=== PATIENT | female | born 1950 | race Caucasian/White ===

== ENCOUNTER 2020-05-21 13:54 | Outpatient (REF) | payer BC, SELFPAY ==
[2020-05-21 16:35] LABS: Hematocrit 37.2 % (37-47); Mean Corpuscular HGB Conc 32.3 g/dl (31.0-35.0); Mean Corpuscular Hemoglobin 27.6 pg (27.0-33.0); Mean Corpuscular Volume 85.7 fL (80-98); Mean Platelet Volume 12.4 fL (9.4-12.3); Platelet Count 150 X10*3/uL (160-400); Red Blood Count 4.34 X10*6/uL (4.20-5.50); Red Cell Distribution Width 13.2 % (11.0-16.0); White Blood Count 5.1 X10*3/uL (4.8-10.8)
[2020-05-21 16:38] LABS: Glucose Urine UA NEG (NEG); Leukocyte Esterase Urine NEG (NEG); Nitrite Urine NEG (NEG); Specific Gravity - Urine 1.015 (1.005-1.025); Urine Blood NEG (NEG); Urine Ketones NEG (NEG); Urine Protein NEG (NEG-TRACE)
[2020-05-21 16:41] LABS: Appearance Urine CLEAR; Color Urine STRAW
[2020-05-21 16:58] LABS: C Reactive Protein < 0.02 mg/dL (< or = 0.50)
[2020-05-21 17:21] LABS: Erythrocyte Sedimentation Rate 8 MM/HR (0-20)
[2020-05-22 15:32] LABS: Calcium, Ionized 5.6 mg/dL (4.8-5.6)
[2020-05-23 10:01] LABS: Calcium (PTHI) 10.8 mg/dL (8.6-10.4); PTHI 72 pg/mL (14-64)
== END 2020-05-21 13:55 | disposition home or self-care (01) ==
LOC: HO.HMGCLDS 13:54
PROVIDERS: PCP Internal Medicine; Visit Provider Internal Medicine
DX: Z00.00 Encounter for general adult medical examination without abnormal findings (principal); R30.0 Dysuria
CPT/HCPCS: 36415; 81003; 82306; 82330; 83970; 85027; 85652; 86140

== ENCOUNTER 2023-08-03 11:45 | Outpatient (AMB) | payer MEDICARE, BC, SELFPAY ==
[2023-08-03 11:51] VITALS: BP 110/64; PULSE 60; O2SAT 97; BMI 21.1
--- NOTE | 2023-08-03 11:51 | AM.OFFVISMDC ---
Intake Vital Signs 08/03/23 11:51 Height 5 ft 5 in Weight 127 lb BMI 21.1 BP 110/64 Blood Pressure Location Lt brachial Position Sitting Pulse 60 Pulse Source Pulse Oximeter Pulse Oximetry (%) 97 Oxygen Delivery Method Room Air Intake Visit Reasons: SWV [id number] Allergies iodine Allergy (Unknown, Verified 08/03/23 12:14) unknown Erythromycin Allergy (Unknown, Uncoded 08/03/23 12:14) unknown Medication List - Last Reconciled 08/03/23 by Smiley Harmon MD biotin PO cholecalciferol (vitamin D3) 25 mcg PO DAILY letrozole 2.5 mg PO DAILY melatonin 3 mg PO BEDTIME PRN HPI SWV [id number] HPI Details Pt presents for annual.Initiated the conversation about Advanced Directives. Advanced Directives help? patients prepare for current and future decisions about their medical treatment? and place of care. Discussed with patient that it is a process where a patients? current condition and prognosis are reviewed, their wishes for information? regarding their illness are elicited, and likely medical dilemmas are presented? and options discussed. The form can be amended as needed, reviewed yearly and? make changes as needed IPPE/AWV ? year old presents? for her ? Annual? Wellness Visit, initial visit.? Medical / Social History Reviewed? Past Medical History ?Yes? . ? [place]? of Care / Care Team list updated ?Yes . ? Surgical/Hospitalization? History ?Yes . ? Current Medications? (including OTC and supplements) ?Yes . ? Family History ?Yes? . ? Tobacco? Control form ?Yes . ? AUDIT-C (Alcohol use) form? ?Yes . ? Illicit drug use in Social? History ?Yes . ? Current diagnosis of? depression? ?No ? Appropriate PHQ2/PHQ9? completed ?Yes . ? Data entered by ?Medical? Sales Performance Analyst and reviewed by provider ? Fall Risk ? Fall? History? Have you had any falls with? injury in the past year? ?No . ? Have you had two or more? falls in the past year? ?No . ? Fall Risk Assessment: ?No? falls in the past year . ? HRA filled out by? the patient, reviewed by Provider and scanned. ? IPPE/AWV ? Balance? [place]? ?Yes . ? Tandem? walk ?Yes . ? Walk and? Turn ?Yes . ? Rise from? sit to stand ?Yes . ?Vision? Corrective? lens ?Yes ? Vision? screen ? Up-to-date, has an appointment [] for vision? screening and glaucoma screening ?Hearing? Whisper? test ?pass .? Initiated the conversation about Advanced Directives. Advanced Directives help? patients prepare for current and future decisions about their medical treatment? and place of care. Discussed with patient that it is a process where a patients? current condition and prognosis are reviewed, their wishes for information? regarding their illness are elicited, and likely medical dilemmas are presented? and options discussed. The form can be amended as needed, reviewed yearly and? make changes as needed Written? Plan?Completed. See Patient? Documents. [facility] Medical History (Updated 08/03/23 @ 15:17 by Smiley Harmon MD) Bilateral breast cancer Tick bite Fatigue Osteopenia GERD (gastroesophageal reflux disease) Hyperparathyroidism Insomnia Dysuria Surgical History S/P bilateral mastectomy History of esophagogastroduodenoscopy (EGD) Family History Father CVD (cardiovascular disease) HTN (hypertension) Diabetes Mother CVD (cardiovascular disease) Diabetes HTN (hypertension) Social History Housing: House Alcohol intake: current Alcohol intake frequency: holidays/special occasions only Patient Tobacco Use Status: Never used Tobacco e-Cigarette/Vaping Use: Never Used Current occupational status: retired Cognitive needs: No Hearing needs: No Vision needs: Yes Questionnaire Medicare Wellness Checkup [age] What gender do you identify with?: female During the past 4 weeks, how much have you been bothered by emotional problems such as feeling anxious, depressed, irritable, sad or downhearted, and blue?: slightly During the past 4 weeks, has your physical & emotional health limited your social activities with family, friends, neighbors, or groups?: slightly During the past 4 weeks, how much bodily pain have you generally had?: no pain During the past 4 weeks, was someone available to help you if you needed & wanted help?: yes, some During the past 4 weeks, what was the hardest physical activity you could do for at least 2 minutes?: heavy Can you get to places out of walking distance without help? (For eg., can you travel alone on buses, taxis or drive your car?): Yes Can you go shopping for groceries or clothes without someone's help?: Yes Can you prepare your own meals?: Yes Can you do your housework without help?: Yes Because of any health problems, do you need the help of another person with your personal care needs such as eating, bathing, dressing or getting around the house?: No Can you handle your own money without help?: Yes During the past 4 weeks, how would you rate your health in general?: good During the past 4 weeks how have things been going for you?: pretty well Are you having difficulties driving your car?: no Do you always fasten your seat belt when you are in a car?: yes, usually During past 4 weeks, have you been bothered by the following: never: Falling or dizzy when standing up, Trouble eating well?, Teeth or denture problems? and Problems using the telephone?, sometimes: Sexual problems? and often: Tiredness or fatigue? Have you fallen 2 or more times in the past year?: No Are you afraid of falling?: No Are you a smoker?: no During the past 4 weeks, how many drinks of wine, beer, or other alcoholic beverages did you have?: no alcohol at all Do you exercise for about 20 minutes 3 or more times a week?: yes, most of the time Have you been given information to help with the following?: no: Hazards in your house that might hurt you? and no: Keeping track of your medications? How often do you have trouble taking medicines the way you have been told to take them?: I always take medicine as prescribed How confident are you that you can control & manage most of your health problems?: very confident What is your race?: White Mini Mental State Exam (MMSE) Orientation What is the (year) (season) (date) (day) (month)?: year, season, date, day and month Where are we (state) (county) (town or city) (hospital) (floor)?: state, county, town or city, hospital/clinic and floor Registration Name of 3 unrelated objects clearly and slowly, then ask patient to repeat all 3 of them. (1st repeat determines score. Make sure they can repeat all three): object 1, object 2 and object 3 Attention & Calculation (CHOOSE ONE) Spell WORLD backwards (DLROW): 5 letters Recall Ask patient to repeat the 3 items from question #3.: object 1, object 2 and object 3 Language Show patient a wristwatch & ask what it is. Repeat for pencil.: watch and pencil Ask the patient to repeat the phrase 'No ifs, ands, or buts' after you.: correct Ask the patient to 'take a piece of paper with their right hand' 'fold paper in half' 'place paper on floor': take paper in right hand, fold paper in half and place paper on floor Print the sentence 'CLOSE YOUR EYES' on a piece. If patient actually closes eyes then score.: followed written direction Give patient a blank piece of paper & ask to write a sentence. Score if it contains a noun & verb.: sentence contains subject and verb Score Score: 29 Activity of Daily Living Bathing - sponge bath, tub bath or shower: receives no assistance (gets in/out by self, if usual bathing means Dressing - getting clothes from closets & drawers, including inner/outer garments & fasteners.: gets clothes & gets completely dressed without help Toileting - going to the 'toilet room' for urine/bowel elimination & cleaning self/arranging clothes: goes to toilet room, cleans self, arranges clothes without help Transfer: moves in & out of bed and chair without help (may use support object) Continence: controls urination/bowel movements completely by self Feeding: feeds self without help Total Score: 0 Information obtained from: patient Using telephone: independent Traveling: independent Shopping: independent Preparing meals: independent Housework: independent Taking medicine: independent Managing money: independent PHQ-9 Over the last 2 weeks, how often have you been bothered by any of the following problems? 1. Little interest or pleasure in doing things: not at all 2. Feeling down, depressed, or hopeless: not at all 3. Trouble falling or staying asleep, or sleeping too much: more than half the days 4. Feeling tired or having little energy: several days 5. Poor appetite or overeating: not at all 6. Feeling bad about yourself - or that you are a failure or have let yourself or your family down: several days 7. Trouble concentrating on things, such as reading the newspaper or watching television: not at all 8. Moving or speaking so slowly that other people could have noticed. Or the opposite - being so fidgety or restless that you have been moving around a lot more than usual: not at all 9. Thoughts that you would be better off or of hurting yourself in some way: not at all Total score: 4 Depression Screening Interpretation: Negative Depression Screening Done: Yes Source: Developed by Moan [employer]W. Cem, Clem Durham and colleagues, with an educational yonis from [email or web address]. Review of Systems Const All systems reviewed & are unremarkable except as noted in HPI and below Eyes Reports no additional complaints ENT Reports no additional complaints Card Reports no additional complaints Resp Reports no additional complaints GI Reports no additional complaints Reports no additional complaints Musc Reports no additional complaints Physical Exam Vital Signs: Last Vital Signs Pulse 60 08/03/23 11:51 BP 110/64 08/03/23 11:51 Pulse Ox 97 08/03/23 11:51 Oxygen Delivery Method Room Air 08/03/23 11:51 BMI result Body Mass Index 21.1 Const General: comfortable HEENT Head: Yes normal to inspection Ears: hearing grossly normal bilaterally Eyes General: appearance normal, both eyes and all related structures Neck Neck: Yes no lymphadenopathy and Yes supple Resp Effort & Inspection: normal respiratory effort Auscultation: clear to auscultation bilaterally Cardio Rhythm: regular rhythm Heart sounds: S1 normal heart sound present and S2 normal heart sound present GI Inspection: Yes normal to inspection Palpation (GI): Soft to palpation Percussion: Yes normal to percussion Auscultation: normal bowel sounds Extrem General: Yes no clubbing, cyanosis or edema Assessment & Plan Assessment & Plan (1) Annual physical exam: Code(s): Z00.00 - Encounter for general adult medical examination without abnormal findings Plan: Well-balanced diet regular physical activity discussed with the patient. (2) Hyperglycemia: Code(s): R73.9 - Hyperglycemia, unspecified Plan: Continue ADA diet (3) Vitamin D deficiency: Code(s): E55.9 - Vitamin D deficiency, unspecified Plan: Continue vitamin-D supplement (4) Mercury overdose: Comment: patient eats fish every day Code(s): T56.1X1A - Toxic effect of mercury and its compounds, accidental (unintentional), initial encounter Plan: Check mercury level (5) Bilateral breast cancer: Comment: bilateral breast cancer, left in 1996 s/p chemo/RTx mastectomy and right in 2008 s/pmastectomy f/u [facility] oncology Code(s): C50.911 - Malignant neoplasm of unspecified site of right female breast; C50.912 - Malignant neoplasm of unspecified site of left female breast Plan: Continue letrozole follow-up with oncology every 6 months Orders: Orders Comprehensive [place]. Panel Fast Today E55.9 - Vitamin D deficiency, unspecified, R73.9 - Hyperglycemia, unspecified, Z00.00 - Encounter for general adult medical examination without abnormal findings Lipid Panel Today E55.9 - Vitamin D deficiency, unspecified, R73.9 - Hyperglycemia, unspecified, Z00.00 - Encounter for general adult medical examination without abnormal findings Vitamin D 25-OH Total Today E55.9 - Vitamin D deficiency, unspecified, R73.9 - Hyperglycemia, unspecified, Z00.00 - Encounter for general adult medical examination without abnormal findings Hemoglobin A1c Today E55.9 - Vitamin D deficiency, unspecified, R73.9 - Hyperglycemia, unspecified, Z00.00 - Encounter for general adult medical examination without abnormal findings Parathyroid Hormone Intact Today E21.3 - Hyperparathyroidism, unspecified Complete Blood Count Auto Diff Today E55.9 - Vitamin D deficiency, unspecified, R73.9 - Hyperglycemia, unspecified, Z00.00 - Encounter for general adult medical examination without abnormal findings Hepatitis C Antibody Today E55.9 - Vitamin D deficiency, unspecified, R73.9 - Hyperglycemia, unspecified, Z00.00 - Encounter for general adult medical examination without abnormal findings Mercury, Blood Today T56.1X1A - Toxic effect of mercury and its compounds, accidental (unintentional), initial encounter TSH reflex Free T4 Today R73.9 - Hyperglycemia, unspecified, Z00.00 - Encounter for general adult medical examination without abnormal findings Quality Reporting (2020) Depression/Bipolar (159/160/161/177) PHQ-9: Total score: 4 Coding Level of Care Code Medicare Subsequent (G0439) Diagnoses Annual physical exam Z00.00 Hyperglycemia R73.9 Vitamin D deficiency E55.9 Mercury overdose T56.1X1A Bilateral breast cancer C50.911; C50.912 CPT Codes Advance Care Planning - Advance Care Planning discussion: On file, no changes ([id number]) Advance Care Planning - Time spent: 1-15 minutes, on File ([id number]) Advance Care Planning Advance Care Planning discussion: On file, no changes Forms completed: Health Care Proxy Time spent: 1-15 minutes, on File
== END 2023-08-03 15:18 | disposition home or self-care (01) ==
LOC: HO.HMGC 11:45
PROVIDERS: PCP Internal Medicine; Visit Provider Internal Medicine
DX: Z00.00 Encounter for general adult medical examination without abnormal findings (principal); C50.911 Malignant neoplasm of unspecified site of right female breast; C50.912 Malignant neoplasm of unspecified site of left female breast; R73.9 Hyperglycemia, unspecified; E55.9 Vitamin D deficiency, unspecified; T56.1X1A Toxic effect of mercury and its compounds, accidental (unintentional), initial encounter
CPT/HCPCS: 1123F; G0439

== ENCOUNTER 2023-12-15 09:06 | Outpatient (AMB) | payer MEDICARE, BC, SELFPAY ==
[2023-12-15 09:07] VITALS: BP 108/64; PULSE 55; O2SAT 97; BMI 21.3
--- NOTE | 2023-12-15 09:07 | MHC.PC.OV ---
Vital Signs 12/15/23 09:07 Height 5 ft 5 in Weight 128 lb BMI 21.3 BP 108/64 Blood Pressure Location Rt brachial Position Sitting Pulse 55 Pulse Source Pulse Oximeter Pulse Oximetry (%) 97 Oxygen Delivery Method Room Air Intake Visit Reasons: RT cataract surgery - see comments Intake Note: Pt is here today for a pre op visit. Pt is having cataract surgery on 12/24/[address] Mckenzie. Allergies iodine Allergy (Unknown, Verified 12/15/23 09:09) unknown Erythromycin Allergy (Unknown, Uncoded 12/15/23 09:09) unknown Medication List - Last Reconciled 12/15/23 by Smiley Harmon MD biotin PO cholecalciferol (vitamin D3) 25 mcg PO DAILY letrozole 2.5 mg PO DAILY melatonin 3 mg PO BEDTIME PRN Tobacco use date assessed: 12/15/23 Fall risk assessment: No Falls in past year Last assessed Fall Risk: 12/15/23 Dental Screening Dental Screen Date: 12/15/23 Did you have a dental visit in the last 12 months?: Yes Did you have a dental problem in the last 6 months where you did not have access to dental care?: No Was dental information given to patient?: Patient has dentist HPI RT cataract surgery - see comments HPI Details Pt presents for preop for cataract surgery. PFSH Medical History (Updated 12/15/23 @ 09:38 by Smiley Harmon MD) Bilateral breast cancer Tick bite Fatigue Osteopenia GERD (gastroesophageal reflux disease) Hyperparathyroidism Insomnia Dysuria Surgical History (Updated 12/15/23 @ 09:41 by Smiley Harmon MD) S/P bilateral mastectomy History of esophagogastroduodenoscopy (EGD) Family History Father CVD (cardiovascular disease) HTN (hypertension) Diabetes Mother CVD (cardiovascular disease) Diabetes HTN (hypertension) Social History Housing: House Alcohol intake: current Alcohol intake frequency: holidays/special occasions only Patient Tobacco Use Status: Never used Tobacco e-Cigarette/Vaping Use: Never Used service: No Current occupational status: retired Cognitive needs: No Hearing needs: No Vision needs: Yes Questionnaire PHQ-9 Over the last 2 weeks, how often have you been bothered by any of the following problems? 1. Little interest or pleasure in doing things: not at all 2. Feeling down, depressed, or hopeless: not at all 3. Trouble falling or staying asleep, or sleeping too much: more than half the days 4. Feeling tired or having little energy: several days 5. Poor appetite or overeating: not at all 6. Feeling bad about yourself - or that you are a failure or have let yourself or your family down: not at all 7. Trouble concentrating on things, such as reading the newspaper or watching television: not at all 8. Moving or speaking so slowly that other people could have noticed. Or the opposite - being so fidgety or restless that you have been moving around a lot more than usual: not at all 9. Thoughts that you would be better off or of hurting yourself in some way: not at all Total score: 3 Depression Screening Interpretation: Negative Depression Screening Done: Yes 26876 - PHQ-9 Billing: Yes Source: Developed by Drs. Ayden Olson, Mona Priest, Clem Durham and colleagues, with an educational yonis from [employer]. Thrive Questionnaire Date Thrive assessed: 07/07/22 I am a: Patient What is your living situation today?: I have a steady place to live Within the past 12 months, did the food you bought not last and you didn't have the money to get more?: Never true Within the past 12 months, did you worry whether your food would run out before you got money to buy more?: Never true Do you have trouble paying for medicines?: No Do you have trouble getting transportation to medical appointments?: No Do you have trouble paying your heating and electricity bill?: No Do you have trouble taking care of your child, family member or friend?: No Do you have trouble with day-to-day activities such as bathing, preparing meals, shopping, managing finances, etc.?: No Are you interested in more education?: No Please select the resources that you would like help with: None Currently or been in a relationship where the following occur: No concerns reported THRIVE Score: 0 AUDIT C Alcohol Use Questionnaire (AUDIT-C) 1. How often do you have a drink containing alcohol?: Never 3. How often do you have six or more drinks on one occasion?: Never Total Score: 0 SHANTE-7 AMB Questionnaire SHANTE-7 Date SHANTE - 7 assessed: 07/07/22 Feeling nervous, anxious, or on edge: 0 = Not at all Not being able to stop or control worryin = Not at all Worrying too much about different things: 0 = Not at all Trouble relaxin = Not at all Being so restless that it is hard to sit still: 0 = Not at all Becoming easily annoyed or irritable: 0 = Not at all Feeling afraid as if something awful might happen: 0 = Not at all Total SHANTE-7 score (0-4 normal; 5-9 mild; 10-14 moderate; 15-21 severe): 0 Source: Developed by Drs. Ayden Olson, Mona Priest, Clem Durham and colleagues, with an educational yonis from [employer]. Review of Systems Const All systems reviewed & are unremarkable except as noted in HPI and below Eyes Reports no additional complaints ENT Reports no additional complaints Card Reports no additional complaints Resp Reports no additional complaints GI Reports no additional complaints Reports no additional complaints Physical exam (Primary Care) Vital Signs: Last Vital Signs Pulse 55 12/15/23 09:07 BP 108/64 12/15/23 09:07 Pulse Ox 97 12/15/23 09:07 Oxygen Delivery Method Room Air 12/15/23 09:07 BMI result Body Mass Index 21.3 Tobacco/Smoking Status: Tobacco use Status Tobacco use date assessed 12/15/23 12/15/23 09:12 Patient Tobacco Use Status Never used Tobacco 12/15/23 09:12 e-Cigarette/Vaping Use Never Used 12/15/23 09:12 PHQ-9: PHQ-9 Score PHQ-9: Total score 3 12/15/23 09:15 Depression Screening Interpretation: Negative Thrive Assessment: Date of Thrive Assessment Date Thrive assessed 07/07/22 12/15/23 09:12 Currently or been in a relationship where the following occur: No concerns reported Const General: no acute distress HENMT Head: Yes normal to inspection Ears: hearing grossly normal bilaterally Face and sinus: Yes normal facial exam Mouth: Normal oral and palatal mucosa present Eyes General: appearance normal, both eyes and all related structures Neck Neck: Yes no lymphadenopathy and Yes supple Resp Effort & Inspection: normal respiratory effort Auscultation: clear to auscultation bilaterally Cardio Rhythm: regular rhythm Heart sounds: S1 normal heart sound present and S2 normal heart sound present GI Inspection: Yes normal to inspection Palpation (GI): Soft to palpation Percussion: Yes normal to percussion Auscultation: normal bowel sounds Assessment and Plan Assessment & Plan (1) Bilateral breast cancer: Comment: bilateral breast cancer, left in 1996 s/p chemo/RTx mastectomy and right in 2008 s/pmastectomy f/u [facility] oncology Code(s): C50.911 - Malignant neoplasm of unspecified site of right female breast; C50.912 - Malignant neoplasm of unspecified site of left female breast Plan: cont Letrozole (2) Cataract: Code(s): H26.9 - Unspecified cataract Plan: Pt is medically cleared for cataract surgery (3) Hyperparathyroidism: Code(s): E21.3 - Hyperparathyroidism, unspecified (4) Hx of colonoscopy: Comment: [facility] Code(s): Z98.890 - Other specified postprocedural states Orders: Orders Magnesium Today E21.3 - Hyperparathyroidism, unspecified, E83.42 - Hypomagnesemia Coding Level of Care Code Est Pt Level 3 (68435) Diagnoses Bilateral breast cancer C50.911; C50.912 Cataract H26.9 Hyperparathyroidism E21.3 Hx of colonoscopy Z98.890
== END 2023-12-15 10:03 | disposition home or self-care (01) ==
PROVIDERS: PCP Internal Medicine; Visit Provider Internal Medicine
DX: C50.911 Malignant neoplasm of unspecified site of right female breast (principal); C50.912 Malignant neoplasm of unspecified site of left female breast; H26.9 Unspecified cataract; E21.3 Hyperparathyroidism, unspecified; Z98.890 Other specified postprocedural states

== ENCOUNTER → 2023-12-15 09:06 | Outpatient (BNVA) | payer MEDICARE, BC, SELFPAY | PROVIDERS: PCP Internal Medicine; Visit Provider Internal Medicine | DX: Z01.818 Encounter for other preprocedural examination (principal); H26.9 Unspecified cataract; E21.3 Hyperparathyroidism, unspecified; Z85.3 Personal history of malignant neoplasm of breast; Z98.890 Other specified postprocedural states | CPT/HCPCS: 99212 ==

== ENCOUNTER 2024-03-14 08:41 | Outpatient (AMB) | payer MEDICARE, BC, SELFPAY ==
[2024-03-14 08:53] VITALS: BP 120/72; PULSE 73; TEMP 36.8; O2SAT 100; BMI 21.6
--- NOTE | 2024-03-14 08:53 | AM.OFFWIN_ITS ---
Intake Vital Signs 03/14/24 08:53 Height 5 ft 5 in Weight 130 lb BMI 21.6 BP 120/72 Blood Pressure Location Rt brachial Position Sitting Pulse 73 Pulse Source Pulse Oximeter Temp 98.3 F Temp Source Temporal Artery Scan Pulse Oximetry (%) 100 Oxygen Delivery Method Room Air Intake Visit Reasons: EP tightness on chest & LT arm, weakness Intake Note: Pt presents to the office today for c/o chest tightness, left arm tightness, hot flashes on and off x1 month. Patient Tobacco Use Status: Never used Tobacco Allergies iodine Allergy (Unknown, Verified 03/14/24 08:55) unknown Erythromycin Allergy (Unknown, Uncoded 03/14/24 08:55) unknown HPI HPI Comments History of Present Illness Details History of Present Illness The patient is a 74-year-old female presenting with chest pain/pressure and insomnia over the last 3-4 weeks. She reports having experienced tightness on the left side of her chest and arm, with intermittent episodes of warmth in her left hand, which is unusual as her hands are typically cold. She is not currently symptomatic. She denies dizziness, lightheadedness, episodes of sweating, nausea, back pain, abdominal pain, neck pain or shoulder pain. Symptoms have been ongoing are and off/on, with frequent visits to the emergency department over the past few weeks. Investigations conducted during these visits included chest X-rays and CT angiography of the chest, which were negative for acute findings, and troponin levels, which were negative. Despite negative resul ts, she continues to experience symptoms, including chest pressure on her left side. She has refrained from sleep due to fear of not waking up, contributing to her insomnia. The patient also notes a history of significant sleep disturbances. She is undergoing a sleep study to evaluate her persistent sleep issues. Past medical history includes breast cancer, bladder cancer, and skin cancer. She has had two mastectomies, a small early bladder cancer, and a small early skin cancer. The patient has also experienced long COVID, which persisted for about a year and a half, with resolution of brain fog by January 2021. The patient has been in recent contact with a director of respiratory therapy and has a follow up appt in March, she has scheduled a nuclear stress test prior to that appt. She had previously undergone a stress test in December 2022, which reported normal findings and no ischemic changes. She expresses anxiety about visiting medical facilities due to her history of long COVID. Her current medications and other treatments were not detailed, but she mentions having used Ativan in the past during breast cancer treatment for related anxiety and is asking for more today. Physical Exam General: Cooperative, healthy appearing, comfortable, no acute distress and well developed Orientation: Patient oriented x3 Limitations: No limitations Head: Normal to inspection Ears: Hearing grossly normal bilaterally Nose: Normal external nose present Face and sinus: Normal facial exam Eyes: Appearance normal, both eyes and all related structures Neck: Normal visual inspection and Yes full ROM Respiratory: Normal respiratory effort and able to speak in complete sentences. Clear to auscultation bilaterally Cardiovascular: Regular rate and rhythm. Normal S1 and S2 Skin: No rashes or lesions noted Neuro: Patient oriented x3 Extremities: Normal to inspection, full ROM [facility] Medical History Bilateral breast cancer Tick bite Fatigue Osteopenia GERD (gastroesophageal reflux disease) Hyperparathyroidism Insomnia Dysuria Surgical History S/P bilateral mastectomy History of esophagogastroduodenoscopy (EGD) Family History Father CVD (cardiovascular disease) HTN (hypertension) Diabetes Mother CVD (cardiovascular disease) Diabetes HTN (hypertension) Social History Housing: House Alcohol intake: current Alcohol intake frequency: holidays/special occasions only Patient Tobacco Use Status: Never used Tobacco e-Cigarette/Vaping Use: Never Used service: No Current occupational status: retired Cognitive needs: No Hearing needs: No Vision needs: Yes Review of Systems Const All systems reviewed & are unremarkable except as noted in HPI and below Physical Exam Vital Signs: Last Vital Signs Temp 98.3 F 03/14/24 08:53 Pulse 73 03/14/24 08:53 BP 120/72 03/14/24 08:53 Pulse Ox 100 03/14/24 08:53 Oxygen Delivery Method Room Air 03/14/24 08:53 BMI result Body Mass Index 21.6 Office Procedures EKG [id number]-[id number], Complete Assessment & Plan Assessment & Plan (1) Left chest pressure: Code(s): R07.89 - Other chest pain Plan: Plan - Request a cardiac evaluation with further testing, including an EKG, to assess for any potential cardiac issues related to the chest pain/pressure. EKG in office was sinus bradycardia with rate of 51BPM. - Continue following up with the director of respiratory therapy Apr 05 and go to your upcoming nuclear stress test. - Do the labs your PCP ordered in November including thyroid function, as there are symptoms congruent with possible hyperthyroidism, such as insomnia and palpitations. - Continue to monitor sleep patterns, and consider further sleep studies or interventions if insomnia persists. - Liaise with the primary physician regarding possible utilization of ativan. I will prescribe hydroxyzine for managing sleep disturbances, advised to take one tablet and increase to 2 tablets if one is ineffective. - Encourage continued follow-up on all oncology-related health care, considering the patient's history of multiple cancers. Patient was informed and verbally consented to the use of an ambient scribe for clinic note documentation during this visit. Medications: New hydroxyzine HCl 10 mg PO Q6-8H PRN 10 tabs 0RF anxiety Coding Level of Care Code Est Pt Level 4 (24738) Diagnoses Left chest pressure R07.89 CPT Codes EKG - CPT: 55463-[id number], Complete ([id number])
== END 2024-03-14 10:00 | disposition home or self-care (01) ==
PROVIDERS: PCP Internal Medicine; Visit Provider Physician Assistant
DX: R07.89 Other chest pain (principal)

== ENCOUNTER 2024-03-14 08:41 | Outpatient (REF) | payer MEDICARE, BC, SELFPAY ==
[2024-03-14 13:34] LABS: MANUAL DIFF FLAG NO
[2024-03-14 13:48] LABS: Basophils Absolute Auto 0.1 X10*3/uL (0.0-0.2); Basophils Percent Auto 1.2 % (0-2); Eosinophils Absolute Auto 0.1 X10*3/uL (0.0-0.4); Eosinophils Percent Auto 1.5 % (0-4); Hematocrit 35.8 % (37.0-47.0); Hemoglobin 11.7 g/dl (12.0-16.0); Imm Gran Abs Auto 0.01 X10*3/uL (0.00-0.03); Imm Gran Pct Auto 0.2 % (0.0-0.4); Lymphocytes Absolute Auto 1.8 X10*3/uL (1.2-4.9); Mean Corpuscular HGB Conc 32.7 g/dl (31.0-35.0); Mean Corpuscular Hemoglobin 27.5 pg (27.0-33.0); Mean Platelet Volume 12.1 fL (9.4-12.3); Monocytes Absolute Auto 0.7 X10*3/uL (0.1-1.2); Monocytes Percent Auto 11.4 % (2-11); Neutrophils Absolute Auto 3.2 x10*3/uL (2.0-8.3); Neutrophils Percent Auto 54.7 % (45-73); Platelet Count 144 X10*3/uL (160-400); Red Blood Count 4.26 X10*6/uL (4.20-5.50); Red Cell Distribution Width 13.7 % (11.0-16.0); White Blood Count 5.9 X10*3/uL (4.8-10.8)
[2024-03-14 14:21] LABS: Alanine Aminotransferase 24 U/L (0-31); Albumin Level 4.6 g/dL (3.5-5.0); Alkaline Phosphatase 60 U/L (39-117); Anion Gap 10 (12-20); Aspartate Amino Transferase 31 U/L (5-31); Bilirubin Total 1.4 mg/dL (0.0-1.0); Blood Urea Nitrogen 13 mg/dL (9-16); Calcium 10.6 mg/dL (8.4-10.2); Carbon Dioxide 29 mmol/L (22-29); Chloride 105 mmol/L (96-108); Cholesterol 170 mg/dL (<200); Estimated Glomerular Filt Rate > 60; Glucose Fasting 96 mg/dL (60-99); HDL Cholesterol 70 mg/dL (>40); LDL Cholesterol Calculated 92 mg/dL (<100); Magnesium 2.2 mg/dL (1.6-2.6); Sodium 140 mmol/L (135-145); Total Protein 7.5 g/dL (6.5-8.0); Triglycerides 42 mg/dL (<150)
[2024-03-14 14:27] LABS: Estimated Average Glucose 120 mg/dL; Hemoglobin A1C 119.5202 umol/L; Hemoglobin A1c % 5.8 % (<6.0)
[2024-03-14 14:35] LABS: Parathyroid Hormone Intact 95.1 pg/mL (8.7-77.1)
[2024-03-14 14:41] LABS: TSH reflex Free T4 3.69 uIU/mL (0.32-4.0); Vitamin D 25-OH Total 46.1 ng/mL (>30)
[2024-03-15 07:58] LABS: ~HepC Num1 0.35 S/CO (0.00-0.79); ~Hepatitis C Antibody Nonreactive (Nonreactive)
[2024-03-18 16:47] LABS: Mercury, Blood <4 mcg/L (<=10)
== END 2024-03-14 08:42 | disposition home or self-care (01) ==
LOC: HO.HMGCLDS 08:41
PROVIDERS: PCP Internal Medicine; Visit Provider Internal Medicine
DX: R07.89 Other chest pain (principal); R73.9 Hyperglycemia, unspecified; Z00.00 Encounter for general adult medical examination without abnormal findings; E83.42 Hypomagnesemia; T56.1X1A Toxic effect of mercury and its compounds, accidental (unintentional), initial encounter
CPT/HCPCS: 36415; 80053; 80061; 82306; 83036; 83735; 83825; 83970; 84443; 85025; 86803; 93005; 99212

== ENCOUNTER 2024-09-02 10:07 | Outpatient (AMB) | payer MEDICARE, BC, SELFPAY ==
[2024-09-02 10:15] VITALS: BP 120/68; PULSE 57; RESP 15; TEMP 37; O2SAT 99; BMI 21.8
--- NOTE | 2024-09-02 10:15 | AM.OFFWIN_ITS ---
Intake Vital Signs 3 09/02/24 10:15 Height 5 ft 5 in Weight 131 lb BMI 21.8 BP 120/68 Blood Pressure Location Rt brachial Position Sitting Respiration 15 Pulse 57 Pulse Source Pulse Oximeter Temp 98.6 F Temp Source Oral Pulse Oximetry (%) 99 Oxygen Delivery Method Room Air Intake Visit Reasons: EP Sore throat Intake Note: Pt is here today c/o sore throat x3wks Patient Tobacco Use Status: Never used Tobacco Allergies iodine Allergy (Unknown, Verified 09/02/24 10:25) unknown Erythromycin Allergy (Unknown, Uncoded 09/02/24 10:25) unknown HPI EP Sore throat 2 HPI0 Details This is a 74-year-old female patient who presents to the walk-in clinic today with report of irritation in the back of her throat on the right side. This has been ongoing for about 3 weeks. She is unsure if this is related to her Invisalign retainers, which she wears at night, which have been ill-fitting lately and possibly causing irritation. She denies any cough, congestion, fevers, fatigue, h/a, or recent illnesses. No exposure to sick contacts. [facility] Medical History Bilateral breast cancer Tick bite Fatigue Osteopenia GERD (gastroesophageal reflux disease) Hyperparathyroidism Insomnia Dysuria Surgical History S/P bilateral mastectomy History of esophagogastroduodenoscopy (EGD) Family History Father CVD (cardiovascular disease) HTN (hypertension) Diabetes Mother CVD (cardiovascular disease) Diabetes HTN (hypertension) Social History Housing: House Alcohol intake: current Alcohol intake frequency: holidays/special occasions only Patient Tobacco Use Status: Never used Tobacco e-Cigarette/Vaping Use: Never Used service: No Current occupational status: retired Cognitive needs: No Hearing needs: No Vision needs: Yes Review of Systems Const All systems reviewed & are unremarkable except as noted in HPI and below Physical Exam Vital Signs: Last Vital Signs Temp 98.6 F 09/02/24 10:15 Pulse 57 09/02/24 10:15 Resp 15 09/02/24 10:15 BP 120/68 09/02/24 10:15 Pulse Ox 99 09/02/24 10:15 Oxygen Delivery Method Room Air 09/02/24 10:15 BMI result Body Mass Index 21.8 Const General: cooperative, healthy appearing, comfortable and no acute distress Limitations: no limitations HEENT Head: Yes normal to inspection Ears: hearing grossly normal bilaterally General nose exam: Normal external nose present Face and sinus: Yes normal facial exam Mouth: Normal oral and palatal mucosa present and moist mucous membranes Throat: Yes posterior oropharynx abnormal (mild erythema right post. oropharynx) Throat image: 2 1. erythema Neck Neck: Yes no lymphadenopathy Resp Effort & Inspection: normal respiratory effort Skin General skin exam: no rashes or lesions noted Psych Appearance: grossly normal Mental Status: mental status grossly normal Speech and movement: Normal speech and movement present Results AMB Rapid Strep 2 AMB Rapid Strep Negative Last Edit by Bella Astorga CMA on 09/02/24 10:28 Assessment & Plan Assessment & Plan (1) Mucosal irritation of oral cavity: Code(s): K13.79 - Other lesions of oral mucosa Plan: Rapid strep negative. I do feel that her rigid plastic retainers, which she brought to office and are rough/chipped on the ends are irritating her posterior oropharynx. I advised she try going a couple of days without wearing them, and see if her symptoms improve. She does not have any viral symptoms. She would like to see a new chief supply chain officer, so I provided her with info for an office closer to her home. She is not due for a routine dental visit for 2 months. If she does not get relief from not wearing retainers, I have sent her a Magic Mouthwash solution to gargle/spit. She can return to the clinic or PCP/Dentist/Ortho as needed for this issue. Patient agrees to plan. Orders: Orders 2 AMB Rapid Strep Screen Today Z13.9 - Encounter for screening, unspecified Medications: New 2 Magic Mouthwash Diphen/Lido/Antacid 1:1:1 Lidocaine Viscous 2 % 80mL; diphenhydramine 12.5 mg/5 mL 80mL; aluminum-mag hydrox-simeth [id number]/5mL 80mL Gargle and spit 10 ml of solution twice a day as needed for oral irritation. 10 mL PO BID PRN 240 mL 0RF oral irritation K13.79 - Other lesions of oral mucosa Coding Level of Care Code Est Pt Level 4 (07291) Diagnoses Mucosal irritation of oral cavity K13.79
--- OUTSIDE RECORDS SUMMARY | 2024-09-02 10:49 | XMS_ITS | Encounter Summary ---
Author Organization [facility] Address [address] [place] [id number] Care Team Providers Care Fence Laborer Name Role Phone Smiley Harmon MD Primary Care Provider [phone] Encounter Details Date Type Department Care Team (Late st Contact Info) Description 05/24/2024 Lab Requisition [facility] - Main Lab [address] [facility] [place] [address] Domingo Aguirre MD [address] [place] [address] Personal history of malignant neoplasm of bladder Social History Tobacco Use Types Packs/Day Years Used Date Smoking Tobacco: Never Assessed Comments Unknown Sex and Gender Information Value Date Recorded Sex Assigned at Not on file Legal Sex Female 3:25 AM EST Gender Identity Not on file Sexual Orientation Not on file documented as of this encounter Plan of Treatment Not on file documented as of this encounter Procedures Procedure Name Priority Date/Time Associated Diagnosis Comments AP OUTSIDE CONSULT Routine 05/19/2024 12 :00 AM EST Personal history of malignant neoplasm of bladder documented in this encounter Results * Anatomic pathology outside consult (05/19/2024 12:00 AM EST) Final Diagnosis A. Urine, Voided, ([id number]): Negative for high grade urothelial carcinoma. Results of UroVysion fluorescence in situ hybridization (FISH) testing: CEP3: Normal CEP7: Normal CEP17: Normal LSI 9p21: Normal Interpretation: Normal profile Controls stained appropriately. Note: The results are intended as a screening device and should be interpreted in association with other clinical and pathological findings. 06/07/2024 5:12 PM EDT [facility] Clinical Information History of bladder neoplasm (malignant) Z85.51 Urine Cytology/FISH (now) 06/07/2024 5:12 PM EDT [facility] Gross Description A. Urine, Voided, ([id number]): Received one ThinPrep slide for cytology and one ThinPrep slide for UroVysion FISH 06/07/2024 5:12 PM EDT [facility] Disclaimer Unless otherwise specified, all tissue is 10% NB formalin fixed and paraffin embedded. Technical pathology services provided by [facility] at [address] [facility] [address], [place] [address] (CLIA #[id number]/Flaca Sam MD, Sorter Lumber Straightener) 06/07/2024 5:12 PM [facility] Tissue Urine specimen from urethra / Unknown 05/19/2024 05/24/2024 2:26 PM EST us Domingo Aguirre MD LAB PATHOLOGY ORDERABLES Final Result [facility] [address] [place] [address], documented in this encounter Visit Diagnoses Diagnosis Personal history of malignant neoplasm of bladder documented in this encounter Care Teams Fence Laborer Relationship Specialty Start Date End Date Smiley Harmon MD PCP - General Internal Medicine 07/09/12 documented as of this encounter
== END 2024-09-02 10:53 | disposition home or self-care (01) ==
PROVIDERS: PCP Internal Medicine; Visit Provider Nurse Practitioner Family
DX: Z13.9 Encounter for screening, unspecified (principal); K13.79 Other lesions of oral mucosa

== ENCOUNTER → 2024-09-02 10:07 | Outpatient (BNVA) | payer MEDICARE, BC, SELFPAY | PROVIDERS: PCP Internal Medicine; Visit Provider Nurse Practitioner Family | DX: K13.79 Other lesions of oral mucosa (principal) | CPT/HCPCS: 87880; 99212 ==

== ENCOUNTER 2024-09-05 09:28 | Outpatient (AMB) | payer MEDICARE, BC, SELFPAY ==
[2024-09-05 09:33] VITALS: BP 110/64; PULSE 69; RESP 18; TEMP 36.9; O2SAT 97; BMI 22.5
--- NOTE | 2024-09-05 09:33 | MHC.PC.OV ---
Vital Signs 09/05/24 09:33 Height 5 ft 5 in Weight 135 lb BMI 22.5 BP 110/64 Blood Pressure Location Rt brachial Position Sitting Respiration 18 Pulse 69 Pulse Source Pulse Oximeter Temp 98.4 F Temp Source Oral Pulse Oximetry (%) 97 Oxygen Delivery Method Room Air Intake Visit Reasons: heart concerns Intake Note: Pt is here today for a follow up visit to discuss some questions. Allergies iodine Allergy (Unknown, Verified 09/05/24 09:33) unknown Erythromycin Allergy (Unknown, Uncoded 09/05/24 09:33) unknown Tobacco use date assessed: 09/05/24 Fall risk assessment: No Falls in past year Last assessed Fall Risk: 09/05/24 Dental Screening Dental Screen Date: 09/05/24 Did you have a dental visit in the last 12 months?: Yes Did you have a dental problem in the last 6 months where you did not have access to dental care?: No Was dental information given to patient?: Patient has dentist HPI heart concerns HPI Details Pt c/o 6 weeks of sore throat. Patient denies fever chills cough body aches. She has started wearing Invisalign a few weeks ago and is sore throat has been slightly better for the last week after patient has stopped wearing. Patient complains of chronic intermittent sharp left-sided chest pain. She had extensive cardiology workup established with senior net developer architect. Patient has been exercising regularly and denies any exercise-induced symptoms PFSH Medical History Hx of cataract Bilateral breast cancer Tick bite Fatigue Osteopenia GERD (gastroesophageal reflux disease) Hyperparathyroidism Insomnia Dysuria Surgical History Hx of colonoscopy S/P bilateral mastectomy History of esophagogastroduodenoscopy (EGD) Family History Father CVD (cardiovascular disease) HTN (hypertension) Diabetes Mother CVD (cardiovascular disease) Diabetes HTN (hypertension) Social History Housing: House Alcohol intake: current Alcohol intake frequency: holidays/special occasions only Patient Tobacco Use Status: Never used Tobacco e-Cigarette/Vaping Use: Never Used service: No Current occupational status: retired Cognitive needs: No Hearing needs: No Vision needs: Yes Questionnaire PHQ-9 Over the last 2 weeks, how often have you been bothered by any of the following problems? 1. Little interest or pleasure in doing things: not at all 2. Feeling down, depressed, or hopeless: not at all 3. Trouble falling or staying asleep, or sleeping too much: more than half the days 4. Feeling tired or having little energy: several days 5. Poor appetite or overeating: not at all 6. Feeling bad about yourself - or that you are a failure or have let yourself or your family down: not at all 7. Trouble concentrating on things, such as reading the newspaper or watching television: not at all 8. Moving or speaking so slowly that other people could have noticed. Or the opposite - being so fidgety or restless that you have been moving around a lot more than usual: not at all 9. Thoughts that you would be better off or of hurting yourself in some way: not at all Total score: 3 Depression Screening Interpretation: Negative Depression Screening Done: Yes 32454 - PHQ-9 Billing: Yes Source: Developed by Drs. Ayden Olson, Mona Priest, Clem Durham and colleagues, with an educational yonis from [employer]. Thrive Questionnaire Date Thrive assessed: 09/05/24 I am a: Patient What is your living situation today?: I have a steady place to live Within the past 12 months, did the food you bought not last and you didn't have the money to get more?: Never true Within the past 12 months, did you worry whether your food would run out before you got money to buy more?: Never true Do you have trouble paying for medicines?: No Do you have trouble getting transportation to medical appointments?: No Do you have trouble paying your heating and electricity bill?: No Do you have trouble taking care of your child, family member or friend?: No Do you have trouble with day-to-day activities such as bathing, preparing meals, shopping, managing finances, etc.?: No Are you currently unemployed and looking for a job?: No Are you interested in more education?: No Please select the resources that you would like help with: None Currently or been in a relationship where the following occur: No concerns reported THRIVE Score: 0 AUDIT C Alcohol Use Questionnaire (AUDIT-C) 1. How often do you have a drink containing alcohol?: Never 3. How often do you have six or more drinks on one occasion?: Never Total Score: 0 SHANTE-7 AMB Questionnaire SHANTE-7 Date SHANTE - 7 assessed: 09/05/24 Feeling nervous, anxious, or on edge: 0 = Not at all Not being able to stop or control worryin = Not at all Worrying too much about different things: 0 = Not at all Trouble relaxin = Not at all Being so restless that it is hard to sit still: 0 = Not at all Becoming easily annoyed or irritable: 0 = Not at all Feeling afraid as if something awful might happen: 0 = Not at all Total SHANTE-7 score (0-4 normal; 5-9 mild; 10-14 moderate; 15-21 severe): 0 Source: Developed by Drs. Ayden Olson, Mona Priest, Clem Durham and colleagues, with an educational yonis from [employer]. SHANTE-7 Assessment Billing SHANTE-7 Assessment Tool: SHANTE-7 Assessment 48065 Review of Systems Const All systems reviewed & are unremarkable except as noted in HPI and below Reports no additional complaints Eyes Reports no additional complaints ENT Reports no additional complaints Card Reports no additional complaints Resp Reports no additional complaints GI Reports no additional complaints Reports no additional complaints Physical exam (Primary Care) Vital Signs: Last Vital Signs Temp 98.4 F 09/05/24 09:33 Pulse 69 09/05/24 09:33 Resp 18 09/05/24 09:33 BP 110/64 09/05/24 09:33 Pulse Ox 97 09/05/24 09:33 Oxygen Delivery Method Room Air 09/05/24 09:33 BMI result Body Mass Index 22.5 Tobacco/Smoking Status: Tobacco use Status Tobacco use date assessed 09/05/24 09/05/24 09:41 Patient Tobacco Use Status Never used Tobacco 09/05/24 09:41 e-Cigarette/Vaping Use Never Used 09/05/24 09:41 PHQ-9: PHQ-9 Score PHQ-9: Total score 3 09/05/24 11:10 Depression Screening Interpretation: Negative Thrive Assessment: Date of Thrive Assessment Date Thrive assessed 09/05/24 09/05/24 09:41 Currently or been in a relationship where the following occur: No concerns reported Const General: no acute distress HENMT Head: Yes normal to inspection Ears: hearing grossly normal bilaterally Face and sinus: Yes normal facial exam Mouth: Normal oral and palatal mucosa present Throat: Yes posterior oropharynx normal Eyes General: appearance normal, both eyes and all related structures Neck Neck: Yes no lymphadenopathy and Yes supple Resp Effort & Inspection: normal respiratory effort Auscultation: clear to auscultation bilaterally Cardio Rhythm: regular rhythm Heart sounds: S1 normal heart sound present and S2 normal heart sound present GI Inspection: Yes normal to inspection Palpation (GI): Soft to palpation Percussion: Yes normal to percussion Auscultation: normal bowel sounds Coding Level of Care Code Est Pt Level 3 (51843) Diagnoses Left chest pressure R07.89 Bilateral breast cancer C50.911; C50.912 Hyperparathyroidism E21.3 Additional Codes SHANTE-7 Assessment Billing - SHANTE-7 Assessment Tool: SHANTE-7 Assessment 44797 ([id number]) PHQ-9 - 45215 - PHQ-9 Billing: Yes ([id number]) Assessment & Plan Assessment & Plan (1) Left chest pressure: Comment: Extensive negative cardiac workup including normal stress test echocardiogram established with senior net developer architect Code(s): R07.89 - Other chest pain Category: Medical Plan: Patient was advised to continue regular cardiovascular exercise and follow-up with Cardiology as needed (2) Bilateral breast cancer: Comment: bilateral breast cancer, left in 1996 s/p chemo/RTx mastectomy and right in 2008 s/pmastectomy f/u [facility] oncology Code(s): C50.911 - Malignant neoplasm of unspecified site of right female breast; C50.912 - Malignant neoplasm of unspecified site of left female breast Category: Medical Plan: Follow-up with oncology (3) Hyperparathyroidism: Code(s): E21.3 - Hyperparathyroidism, unspecified Category: Medical Plan: Follow-up with endocrinology
--- OUTSIDE RECORDS SUMMARY | 2024-09-05 10:01 | XMS_ITS | Encounter Summary ---
Author Organization [facility] Address [address] [place] [id number] Care Team Providers Care Mail Carriers Supervisor Name Role Phone Smiley Harmon MD Primary Care Provider [phone] Encounter Details Date Type Department Care Team (Late st Contact Info) Description 05/24/2024 Lab Requisition [facility] - Main Lab [address] [facility] [place] [address] Domingo Aguirre MD [address] [place] [address] Personal history of malignant neoplasm [...] AM EST) Final Diagnosis A. Urine, Voided, ([id number]): Negative for high grade urothelial carcinoma. Results of UroVysion fluorescence in situ hybridization (FISH) testing: CEP3: Normal CEP7: Normal CEP17: Normal LSI 9p21: Normal Interpretation: Normal profile Controls stained appropriately. Note: The results are intended as a screening device and should be interpreted in association with other clinical and pathological findings. 06/07/2024 5:12 PM EDT [facility] Clinical Information History of bladder neoplasm (malignant) Z85.51 Urine Cytology/FISH (now) 06/07/2024 5:12 PM EDT [facility] Gross Description A. Urine, Voided, ([id number]): Received one ThinPrep slide for cytology and one ThinPrep slide for UroVysion FISH 06/07/2024 5:12 PM EDT [facility] Disclaimer Unless otherwise specified, all tissue is 10% NB formalin fixed and paraffin embedded. Technical pathology services provided by [facility] at [address] [facility] [address], [place] [address] (CLIA #[id number]/Flaca Sam MD, Shift Production Associate) 06/07/2024 5:12 PM [facility] Tissue Urine specimen from urethra / Unknown 05/19/2024 05/24/2024 2:26 PM EST us Domingo Aguirre MD LAB PATHOLOGY ORDERABLES Final Result [facility] [address] [place] [address], documented in this encounter Visit Diagnoses Diagnosis Personal history of malignant neoplasm of bladder documented in this encounter Care Teams Mail Carriers Supervisor Relationship Specialty Start Date End Date Smiley Harmon MD PCP - General Internal Medicine 07/09/12 documented as of this encounter
== END 2024-09-05 11:05 | disposition home or self-care (01) ==
LOC: HO.HMCC 09:29
PROVIDERS: PCP Internal Medicine; Visit Provider Internal Medicine
DX: R07.89 Other chest pain (principal); C50.911 Malignant neoplasm of unspecified site of right female breast; C50.912 Malignant neoplasm of unspecified site of left female breast; E21.3 Hyperparathyroidism, unspecified

== ENCOUNTER → 2024-09-05 09:28 | Outpatient (BNVA) | payer MEDICARE, BC, SELFPAY | PROVIDERS: PCP Internal Medicine; Visit Provider Internal Medicine | DX: R07.89 Other chest pain (principal); E21.3 Hyperparathyroidism, unspecified; Z85.3 Personal history of malignant neoplasm of breast | CPT/HCPCS: 96127; 99212 ==

== ENCOUNTER 2024-09-26 13:23 | Outpatient (AMB) | payer MEDICARE, SELFPAY ==
[2024-09-26 13:25] VITALS: BP 102/64; PULSE 59; RESP 17; TEMP 36.9; O2SAT 97; BMI 22.1
--- NOTE | 2024-09-26 13:25 | A.OFFPC_ITS ---
Vital Signs 09/26/24 13:25 Height 5 ft 5 in Weight 133 lb BMI 22.1 BP 102/64 Blood Pressure Location Rt brachial Position Sitting Respiration 17 Pulse 59 Pulse Source Pulse Oximeter Temp 98.5 F Temp Source Oral Pulse Oximetry (%) 97 Oxygen Delivery Method Room Air Intake Visit Reasons: Annual PE RE Intake Note: Pt is here today for PE. Allergies iodine Allergy (Unknown, Verified 09/26/24 13:25) unknown Erythromycin Allergy (Unknown, Uncoded 09/26/24 13:25) unknown Medication List - Last Reconciled 09/26/24 by Smiley Harmon MD cholecalciferol (vitamin D3) 25 mcg PO DAILY hydroxyzine HCl 10 mg PO Q6-8H PRN letrozole 2.5 mg PO DAILY Magic Mouthwash Diphen/Lido/Antacid 1:1:1 10 mL PO BID PRN melatonin 3 mg PO BEDTIME PRN multivitamin 1 tab PO DAILY Tobacco use date assessed: 09/26/24 Fall risk assessment: No Falls in past year Last assessed Fall Risk: 09/26/24 Dental Screening Dental Screen Date: 09/05/24 HPI Annual PE RE HPI Details Pt presents for PE. Patient complains of feeling tired and having dyspnea on exertion for the last few months. She is established with basic Cardiology and had recent normal stress test and the CT calcium score. Patient complains of bulging in the middle of the abdomen occasionally tender. Patient reports chronic constipation but denies nausea vomiting hematochezia or melena. Patient would like to see a surgeon to evaluate for abdominal wall hernia [facility] Medical History (Updated 09/26/24 @ 14:04 by Smiley Harmon MD) Abdominal wall bulge SUN (dyspnea on exertion) Hx of cataract Bilateral breast cancer Tick bite Fatigue Osteopenia GERD (gastroesophageal reflux disease) Hyperparathyroidism Insomnia Dysuria Surgical History Hx of colonoscopy S/P bilateral mastectomy History of esophagogastroduodenoscopy (EGD) Family History Father CVD (cardiovascular disease) HTN (hypertension) Diabetes Mother CVD (cardiovascular disease) Diabetes HTN (hypertension) Social History Housing: House Alcohol intake: current Alcohol intake frequency: holidays/special occasions only Patient Tobacco Use Status: Never used Tobacco e-Cigarette/Vaping Use: Never Used service: No Current occupational status: retired Cognitive needs: No Hearing needs: No Vision needs: Yes Questionnaire Thrive Questionnaire Date Thrive assessed: 09/24/24 I am a: Patient What is your living situation today?: I have a steady place to live Within the past 12 months, did the food you bought not last and you didn't have the money to get more?: Never true Within the past 12 months, did you worry whether your food would run out before you got money to buy more?: Never true Do you have trouble paying for medicines?: No Do you have trouble getting transportation to medical appointments?: No Do you have trouble paying your heating and electricity bill?: No Do you have trouble taking care of your child, family member or friend?: No Do you have trouble with day-to-day activities such as bathing, preparing meals, shopping, managing finances, etc.?: No Are you currently unemployed and looking for a job?: No Are you interested in more education?: No Please select the resources that you would like help with: None Currently or been in a relationship where the following occur: No concerns reported THRIVE Score: 0 AUDIT C Alcohol Use Questionnaire (AUDIT-C) 1. How often do you have a drink containing alcohol?: Never 3. How often do you have six or more drinks on one occasion?: Never Total Score: 0 SHANTE-7 AMB Questionnaire SHANTE-7 Date SHANTE - 7 assessed: 09/05/24 Feeling nervous, anxious, or on edge: 0 = Not at all Not being able to stop or control worryin = Not at all Worrying too much about different things: 0 = Not at all Trouble relaxin = Not at all Being so restless that it is hard to sit still: 0 = Not at all Becoming easily annoyed or irritable: 0 = Not at all Feeling afraid as if something awful might happen: 0 = Not at all Total SHANTE-7 score (0-4 normal; 5-9 mild; 10-14 moderate; 15-21 severe): 0 Source: Developed by Drs. Ayden Olson, Mona PriestClem and colleagues, with an educational yonis from [employer], an [employer]. Review of Systems Const All systems reviewed & are unremarkable except as noted in HPI and below Reports no additional complaints Eyes Reports no additional complaints ENT Reports no additional complaints Card Reports no additional complaints Resp Reports no additional complaints GI Reports no additional complaints Reports no additional complaints Musc Reports no additional complaints Physical exam (Primary Care) Vital Signs: Last Vital Signs Temp 98.5 F 09/26/24 13:25 Pulse 59 09/26/24 13:25 Resp 17 09/26/24 13:25 BP 102/64 09/26/24 13:25 Pulse Ox 97 09/26/24 13:25 Oxygen Delivery Method Room Air 09/26/24 13:25 BMI result Body Mass Index 22.1 Tobacco/Smoking Status: Tobacco use Status Tobacco use date assessed 09/26/24 09/26/24 13:34 Patient Tobacco Use Status Never used Tobacco 09/26/24 13:27 e-Cigarette/Vaping Use Never Used 09/26/24 13:27 Thrive Assessment: Date of Thrive Assessment Date Thrive assessed 09/24/24 09/26/24 13:27 Currently or been in a relationship where the following occur: No concerns reported Const General: no acute distress HENMT Head: Yes normal to inspection Ears: TM's normal bilaterally Face and sinus: Yes normal facial exam Neck Neck: Yes no lymphadenopathy and Yes supple Resp Effort & Inspection: normal respiratory effort Auscultation: clear to auscultation bilaterally Cardio Rhythm: regular rhythm Heart sounds: S1 normal heart sound present and S2 normal heart sound present GI Inspection: Yes normal to inspection Palpation (GI): Soft to palpation, Tenderness to palpation present (GI) periumbilically; with no rebound tenderness and no guarding Percussion: Yes normal to percussion Auscultation: normal bowel sounds Coding Level of Care Code Est Pt Prev Care >65y(28419) Diagnoses Hyperparathyroidism E21.3 Bilateral breast cancer C50.911; C50.912 Annual physical exam Z00.00 SUN (dyspnea on exertion) R06.09 Abdominal wall bulge R19.00 Assessment & Plan Assessment & Plan (1) Hyperparathyroidism: Comment: Patient is established with [facility] endocrinology Code(s): E21.3 - Hyperparathyroidism, unspecified Category: Medical Plan: Check blood work and patient will call [facility] field service representative to schedule an appointment (2) Bilateral breast cancer: Comment: bilateral breast cancer, left in 1996 s/p chemo/RTx mastectomy and right in 2008 s/pmastectomy f/u [facility] oncology Code(s): C50.911 - Malignant neoplasm of unspecified site of right female breast; C50.912 - Malignant neoplasm of unspecified site of left female breast Category: Medical Plan: FOLLOW-UP WITH [facility] (3) Annual physical exam: Code(s): Z00.00 - Encounter for general adult medical examination without abnormal findings Category: Medical Plan: Well-balanced diet regular physical activity discussed with the patient. She is up-to-date with colonoscopy. And has been treated by Oncology for osteoporosis (4) SUN (dyspnea on exertion): Comment: ESTABLISHED WITH [facility], NEGATIVE STRESS TEST AND CT CORONARY CALCIUM SCORE JULY 2024 Code(s): R06.09 - Other forms of dyspnea Category: Medical Plan: Established with Cardiology (5) Abdominal wall bulge: Code(s): R19.00 - Intra-abdominal and pelvic swelling, mass and lump, unspecified site Category: Medical Plan: Patient will schedule an appointment with general surgeon at [facility] to evaluate for abdominal wall hernia Orders: Orders Vitamin D 25-OH Total Today E21.3 - Hyperparathyroidism, unspecified Calcium, Ionized Today E21.3 - Hyperparathyroidism, unspecified Parathyroid Hormone Intact Today E21.3 - Hyperparathyroidism, unspecified IRON PROFILE Today D64.9 - Anemia, unspecified Complete Blood Count Auto Diff Today D64.9 - Anemia, unspecified
--- OUTSIDE RECORDS SUMMARY | 2024-09-26 13:50 | XMS_ITS | Data Portability ---
Author Organization [facility], [facility] Address [address] [place] [address] Assessment No assessment recorded. Plan of Treatment Reminders Order Date Submit Date Provider Last Modified By Organization Details Last Modified Time Details Appointments None record ed. Lab None record ed. Referral None record ed. Procedures None record ed. Surgeries None record ed. Imaging None record ed. Medication Orders None record ed. Patient TargetsNo targets recorded. Patient InstructionsNo instructions recorded. Reason for Referral None Reported. Problems Name Problem SNOMED Code Status Onset Date Resolution Date Notes Provider Name and Address Organization Details Recorded Time Hand joint stiff [id number] Completed 200302/16/2013 Not Available [facility] 3 02:04:26 Ganglion and cyst of synovium, tendon and bursa Active 2003 Not Available [facility] 3 03:12:18 Problem Notes None recorded. Medical Equipment None Reported. Vitals None Recorded Social History None recorded. Functional Status None recorded. Mental Status None recorded. Family History Nothing Reported. Medical History No medical history recorded. Gynecological HistoryNo gynecological history recorded. Obstetrics History GPAL:G 0 P 0 0 0 0 Past Encounters Encounter ID Performer Location Encounter Start Date Encounter Closed Date Diagnosis/Indication Diagnosis SNOMED-CT Code Diagnosis ICD10 Code Diagnosis Note [id number] Dahlia Ramos, OT Physical Therapy, [address] [address] 09/06/2003 13:43:25 09/06/2003 13:59:22 [id number] Dahlia Ramos OT Physical Therapy, [address] [address] 09/11/2003 10:35:28 09/11/2003 12:38:02 [id number] Dahlia Ramos OT Physical Therapy, [address] [address] 09/13/2003 11:11:12 09/13/2003 13:31:35 [id number] Dahlia Ramos, OT Physical Therapy, [facility] [place] [address] 09/18/2003 11:33:52 09/18/2003 14:09:47 [id number] Dahlia Ramos, OT Physical Therapy, [facility] [place] [address] 09/21/2003 09:56:05 09/21/2003 12:35:56 [id number] Dahlia Ramos, OT Physical Therapy, [facility] [place] [address] 09/26/2003 09:51:27 09/26/2003 12:37:48 [id number] Dahlia Ramos, OT Physical Therapy, [facility] [place] [address] 10/05/2003 09:16:01 10/05/2003 13:08:37 [id number] Dahlia Ramos, OT Physical Therapy, [facility] [place] [address] 10/12/2003 10:43:59 10/12/2003 12:41:16 [id number] Dahlia Ramos, OT Physical Therapy, [facility] [place] [address] 10/24/2003 09:19:22 10/24/2003 12:27:53 [id number] Dahlia Ramos, OT Physical Therapy, [facility] [place] [address] 11/01/2003 09:38:36 11/01/2003 12:32:19 [id number] Dahlia Ramos, OT Physical Therapy, [facility] [place] [address] 11/09/2003 09:49:11 11/09/2003 12:36:40 [id number] Dahlia Ramos, OT Physical Therapy, [facility] [place] [address] 11/28/2003 12:33:02 11/28/2003 12:33:25 [id number] Dahlia Ramos, OT Physical Therapy, [facility] [place] [address] 12/06/2003 10:47:15 12/06/2003 12:22:09 Health Concerns Section Related Observation LastModified by Organization Detai ls LastModified Time None Recorded Concern Status LastModified by Organization Details LastModified Time None Recorded Advance Directives Directive None Recorded Payers Insurance Date Sequence Insurance Name Policy Number Policy Tovar Covered Member ID Tovar Member ID Guarantor Name 06/25/2012 1 [facility] Rosie Linda [id number] Rosie Linda OBGyn Episode No OBEpisode recorded.
--- OUTSIDE RECORDS SUMMARY | 2024-09-26 13:50 | XMS_ITS | Encounter Summary ---
Author Organization [facility] Address [address] [place] [address] Care Team Providers Care Defence [employer] Senior Officer Name Role Phone Smiley Harmon MD Primary Care Provider [phone] Encounter Details Date Type Department Care Team (Late st Contact Info) Description 05/24/2024 Lab Requisition [facility] - Main Lab [address] [facility] [place] [address] Domingo Aguirre MD [address] [place] [address] Personal history of malignant neoplasm [...] AM EST) Final Diagnosis A. Urine, Voided, ([id number]): Negative for high grade urothelial carcinoma. Results of UroVysion fluorescence in situ hybridization (FISH) testing: CEP3: Normal CEP7: Normal CEP17: Normal LSI 9p21: Normal Interpretation: Normal profile Controls stained appropriately. Note: The results are intended as a screening device and should be interpreted in association with other clinical and pathological findings. 06/07/2024 5:[address] [facility] Clinical Information History of bladder neoplasm (malignant) Z85.51 Urine Cytology/FISH (now) 06/07/2024 5:[address] [facility] Gross Description A. Urine, Voided, ([id number]): Received one ThinPrep slide for cytology and one ThinPrep slide for UroVysion FISH 06/07/2024 5:[address] [facility] Disclaimer Unless otherwise specified, all tissue is 10% NB formalin fixed and paraffin embedded. Technical pathology services provided by [facility] at [address] [facility] [address], [place] [address] (CLIA #[id number]/Flaca Sam MD, Setter Machine) 06/07/2024 5:12 PM [facility] Tissue Urine specimen from urethra / Unknown 05/19/2024 05/24/2024 2:26 PM EST us Domingo Aguirre MD LAB PATHOLOGY ORDERABLES Final Result [facility] [address] [place] [address], documented in this encounter Visit Diagnoses Diagnosis Personal history of malignant neoplasm of bladder documented in this encounter Care Teams [employer] Senior Officer Relationship Specialty Start Date End Date Smiley Harmon MD PCP - General Internal Medicine 07/09/12 documented as of this encounter
--- OUTSIDE RECORDS SUMMARY | 2024-09-26 13:50 | XMS_ITS | Patient Health Record ---
[facility] Address [address] [place] [address] Care Team Providers Care River Expedition Guide Name Role Phone Smiley Harmon MD Primary Care Provider Unavaila geoff Amaya, Lani Unavailable [phone] Allergies Allergen (clinical drug ingredient) Drug/Non Drug Allergy documented on EMR Reaction Allergy Type Onset Date Status Adhesive tape (uncoded) rash Allergy Active erythromycin Erythromycin stomach pain Drug Allergy Active Iodine weakness/dizzin ess Drug Allergy Active Sudafed tremors Drug Allergy Active Reason For Referral No Information Medications Medication SIG (Take, Route, Fr equency, Duration) Notes Start Date End Date Status Multivitamin - as directed Orally Active Vitamin D 2000 UNIT 1 tablet Orally Once a day; Duration: 30 day(s) Active Letrozole 2.5 MG 1 tablet Orally Once a day; Duration: 30 day(s) Active Social History Tobacco Use: Social History Observation Description Date Details (start date - stop date) Never Smoker NA - NA Tobacco Use/Smoking Question Answer Notes Are you a: nonsmoker Additional Findings: Tobacco Non-User Current no n-smoker Alcohol Screen Question Answer Notes Did you have a drink containing alcohol in the p ast year? No Points 0 Interpretation Negative Tobacco use other than smoking: Question Answer Notes Are you an other tobacco user? No Problems Problem Type SNOMED Code ICD Code Onset Dates Problem Status W/U Status Risk Notes Problem Acquired hallux valgus (00959969) Hallux valgus (acquired), left foot (M20.12) Active confirmed Problem Primary osteoarthritis, left ankle and foot (M19.072) Active confirmed Problem Acquired hallux interphalangeus of left foot (M20.12) Active confirmed Plan Of Treatment No Information Insurance Providers Payer Name Payer Address Payer Phone Subscriber Number Group Number Insured Name Patient Relationship to Insured Coverage Start Date Coverage End Date [facility] [employer] [address] [place] [address] [phone] [id number] Rosie Linda Self - patient is the insured Medical (General) History Medical History History ICD Code Insomnia Hyperparathyroidism Reflux ( GERD) Osteopenia breast cancer Angina Constipation Lung nodule Vitamin D deficiency Malignant neoplasm of urinary bladder Malignant neoplasm of nipple and areola, right and left breast Hypercalcemia Hypoglycemia Other chronic pain Arthritis Cancer Measles Mumps Chicken pox raynauds disease Surgical History Surgery Date(Month/Year) mastectomy & reconstruction 1996 & 2008 tonsillectomy and adenoidectomy 1955 inguinal hernia repair 1995 hysterectomy 1999 appendectomy 1999 breast implants 2012 bladder cancer 2014
== END 2024-09-26 14:06 | disposition home or self-care (01) ==
PROVIDERS: PCP Internal Medicine; Visit Provider Internal Medicine
DX: Z00.00 Encounter for general adult medical examination without abnormal findings (principal); C50.911 Malignant neoplasm of unspecified site of right female breast; C50.912 Malignant neoplasm of unspecified site of left female breast; E21.3 Hyperparathyroidism, unspecified; R06.09 Other forms of dyspnea; R19.00 Intra-abdominal and pelvic swelling, mass and lump, unspecified site

== ENCOUNTER 2024-09-26 13:23 | Outpatient (REF) | payer MEDICARE, SELFPAY ==
[2024-09-26 16:02] LABS: MANUAL DIFF FLAG NO
[2024-09-26 16:09] LABS: Basophils Absolute Auto 0.1 X10*3/uL (0.0-0.2); Basophils Percent Auto 1.1 % (0-2); Eosinophils Absolute Auto 0.1 X10*3/uL (0.0-0.4); Hematocrit 35.6 % (37.0-47.0); Hemoglobin 11.8 g/dl (12.0-16.0); Imm Gran Abs Auto 0.01 X10*3/uL (0.00-0.03); Imm Gran Pct Auto 0.2 % (0.0-0.4); Lymphocytes Absolute Auto 1.6 X10*3/uL (1.2-4.9); Lymphocytes Percent Auto 28.6 % (20-40); Mean Corpuscular HGB Conc 33.1 g/dl (31.0-35.0); Mean Corpuscular Hemoglobin 27.7 pg (27.0-33.0); Mean Corpuscular Volume 83.6 fL (80.0-98.0); Mean Platelet Volume 12.2 fL (9.4-12.3); Monocytes Absolute Auto 0.6 X10*3/uL (0.1-1.2); Monocytes Percent Auto 11.6 % (2-11); Neutrophils Absolute Auto 3.1 x10*3/uL (2.0-8.3); Neutrophils Percent Auto 56.5 % (45-73); Platelet Count 145 X10*3/uL (160-400); Red Blood Count 4.26 X10*6/uL (4.20-5.50); Red Cell Distribution Width 13.5 % (11.0-16.0); White Blood Count 5.5 X10*3/uL (4.8-10.8)
[2024-09-26 16:54] LABS: Parathyroid Hormone Intact 124.4 pg/mL (8.7-77.1)
[2024-09-26 16:57] LABS: Iron 42 mcg/dL (30-160); Percent Iron Saturation 14 % (15-50); Total Iron Binding Capacity 306 mcg/dL (228-428); Unsaturated Iron Binding 264 ug/dL
[2024-09-26 17:15] LABS: Vitamin D 25-OH Total 37.5 ng/mL (>30)
[2024-09-27 18:23] LABS: Calcium, Ionized 5.6 mg/dL (4.7-5.5)
== END 2024-09-26 13:24 | disposition home or self-care (01) ==
LOC: HO.HMGCLDS 13:23
PROVIDERS: PCP Internal Medicine; Visit Provider Internal Medicine
DX: Z00.00 Encounter for general adult medical examination without abnormal findings (principal); E21.3 Hyperparathyroidism, unspecified; C50.911 Malignant neoplasm of unspecified site of right female breast; C50.912 Malignant neoplasm of unspecified site of left female breast; R06.09 Other forms of dyspnea; R19.00 Intra-abdominal and pelvic swelling, mass and lump, unspecified site; D64.9 Anemia, unspecified
CPT/HCPCS: 36415; 82306; 82330; 83540; 83970; 85025; 99397

== ENCOUNTER 2024-12-08 12:13 | Outpatient (AMB) | payer MEDICARE, SELFPAY ==
--- NOTE | 2024-12-08 12:34 | A.OFFPC_ITS ---
Vital Signs 12/08/24 12:36 Height 5 ft 5 in Weight 129 lb BMI 21.5 BP 112/66 Blood Pressure Location Lt brachial Position Sitting Respiration 18 Pulse 55 Pulse Source Pulse Oximeter Temp 98.7 F Temp Source Oral Pulse Oximetry (%) 98 Oxygen Delivery Method Room Air Intake Visit Reasons: cataracts - pre op Intake Note: Pt is here today for a pre op visit. Pt is having cataract surgery on 12/22/24. Allergies iodine Allergy (Unknown, Verified 12/08/24 12:42) unknown Erythromycin Allergy (Unknown, Uncoded 12/08/24 12:42) unknown Tobacco use date assessed: 09/26/24 Fall risk assessment: No Falls in past year Last assessed Fall Risk: 12/08/24 Dental Screening Dental Screen Date: 09/05/24 HPI cataracts - pre op HPI Details Pt presents for preop for cataract surgery. [facility] Medical History (Updated 12/09/24 @ 11:44 by Smiley Harmon MD) 1st degree AV block Abdominal wall bulge SUN (dyspnea on exertion) Hx of cataract Bilateral breast cancer Tick bite Fatigue Osteopenia GERD (gastroesophageal reflux disease) Hyperparathyroidism Insomnia Dysuria Surgical History Hx of colonoscopy S/P bilateral mastectomy History of esophagogastroduodenoscopy (EGD) Family History Father CVD (cardiovascular disease) HTN (hypertension) Diabetes Mother CVD (cardiovascular disease) Diabetes HTN (hypertension) Social History Housing: House Alcohol intake: current Alcohol intake frequency: holidays/special occasions only Patient Tobacco Use Status: Never used Tobacco e-Cigarette/Vaping Use: Never Used service: No Current occupational status: retired Cognitive needs: No Hearing needs: No Vision needs: Yes Questionnaire Thrive Questionnaire Date Thrive assessed: 09/24/24 I am a: Patient What is your living situation today?: I have a steady place to live Within the past 12 months, did the food you bought not last and you didn't have the money to get more?: Never true Within the past 12 months, did you worry whether your food would run out before you got money to buy more?: Never true Do you have trouble paying for medicines?: No Do you have trouble getting transportation to medical appointments?: No Do you have trouble paying your heating and electricity bill?: No Do you have trouble taking care of your child, family member or friend?: No Do you have trouble with day-to-day activities such as bathing, preparing meals, shopping, managing finances, etc.?: No Are you currently unemployed and looking for a job?: No Are you interested in more education?: No Please select the resources that you would like help with: None Currently or been in a relationship where the following occur: No concerns reported THRIVE Score: 0 SHANTE-7 AMB Questionnaire SHANTE-7 Date SHANTE - 7 assessed: 09/05/24 Source: Developed by Drs. Ayden Olson, Mona Priest, Clem Durham and colleagues, with an educational yonis from [employer]. Review of Systems Const All systems reviewed & are unremarkable except as noted in HPI and below Eyes Reports no additional complaints ENT Reports no additional complaints Card Reports no additional complaints Resp Reports no additional complaints GI Reports no additional complaints Reports no additional complaints Physical exam (Primary Care) Vital Signs: Last Vital Signs Temp 98.7 F 12/08/24 12:36 Pulse 55 12/08/24 12:36 Resp 18 12/08/24 12:36 BP 112/66 12/08/24 12:36 Pulse Ox 98 12/08/24 12:36 Oxygen Delivery Method Room Air 12/08/24 12:36 BMI result Body Mass Index 21.5 Tobacco/Smoking Status: Tobacco use Status Tobacco use date assessed 09/26/24 12/08/24 12:36 Patient Tobacco Use Status Never used Tobacco 12/08/24 12:36 e-Cigarette/Vaping Use Never Used 12/08/24 12:36 Thrive Assessment: Date of Thrive Assessment Date Thrive assessed 09/24/24 12/08/24 12:36 Currently or been in a relationship where the following occur: No concerns reported Const General: no acute distress HENMT Head: Yes normal to inspection Face and sinus: Yes normal facial exam Eyes General: appearance normal, both eyes and all related structures Neck Neck: Yes supple Resp Effort & Inspection: normal respiratory effort Auscultation: clear to auscultation bilaterally Cardio Rhythm: regular rhythm Heart sounds: S1 normal heart sound present and S2 normal heart sound present GI Inspection: Yes normal to inspection Palpation (GI): Soft to palpation Percussion: Yes normal to percussion Auscultation: normal bowel sounds Coding Level of Care Code Est Pt Level 3 (27450) Diagnoses Cataract H26.9 Assessment & Plan Assessment & Plan (1) Cataract: Code(s): H26.9 - Unspecified cataract Category: Medical Plan: Patient is medically cleared for cataract surgery
[2024-12-08 12:36] VITALS: BP 112/66; PULSE 55; RESP 18; TEMP 37.1; O2SAT 98; BMI 21.5
--- OUTSIDE RECORDS SUMMARY | 2024-12-08 16:27 | XMS_ITS | Encounter Summary ---
Author Organization [facility] Address [address] [place] [address] Care Team Providers Care Chemical Treatment Plant Technician Name Role Phone Smiley Harmon MD Primary Care Provider [phone] Encounter Details Date Type Department Care Team (Late st Contact Info) Description 05/24/2024 Lab Requisition [facility] - Main Lab [address] [facility] [place] [address] Domingo Aguirre MD [address] [facility] [address] [place] [address] Personal history of malignant neoplasm [...] AM EST) Final Diagnosis A. Urine, Voided, ([id number]): Negative for high grade urothelial carcinoma. Results of UroVysion fluorescence in situ hybridization (FISH) testing: CEP3: Normal CEP7: Normal CEP17: Normal LSI 9p21: Normal Interpretation: Normal profile Controls stained appropriately. Note: The results are intended as a screening device and should be interpreted in association with other clinical and pathological findings. 06/07/2024 5:12 PM EDT [facility] Clinical Information History of bladder neoplasm (malignant) Z85.51 Urine Cytology/FISH (now) 06/07/2024 5:12 PM EDT [facility] Gross Description A. Urine, Voided, ([id number]): Received one ThinPrep slide for cytology and one ThinPrep slide for UroVysion FISH 06/07/2024 5:12 PM EDT [facility] Disclaimer Unless otherwise specified, all tissue is 10% NB formalin fixed and paraffin embedded. Technical pathology services provided by [facility] at [address] [place] [address] [address], [place] [address] (CLIA #[id number]/Flaca Sam MD, Sales Department Manager) 06/07/2024 5:12 PM EDT [facility] Tissue Urine specimen from urethra / Unknown 05/19/2024 05/24/2024 2:26 PM EST us Domingo Aguirre MD LAB PATHOLOGY ORDERABLES Final Result [facility] [address] [place] [address], documented in this encounter Visit Diagnoses Diagnosis Personal history of malignant neoplasm of bladder documented in this encounter Care Teams Chemical Treatment Plant Technician Relationship Specialty Start Date End Date Smiley Harmon MD PCP - General Internal Medicine 07/09/12 documented as of this encounter
--- OUTSIDE RECORDS SUMMARY | 2024-12-08 16:27 | XMS_ITS | Encounter Summary ---
Author Organization [facility] Address [address] [place] [address] Phone Care Team Providers Care Public Housing Interviewer Name Role Phone Smiley Harmon MD Primary Care Provider [phone] Encounter Details Date Type Department Care Team (Late st Contact Info) Description 10/26/2019 Transcribe Orders Virtual Department [address] [place] [address] Smiley Harmon MD [address] [place] [address] [place] [id number] Exposure to SARS virus (Primary Dx) Social History Tobacco Use Types Packs/Day Years Used Date Smoking Tobacco: Never Smokeless Tobacco: Never Alcohol Use Standard Drinks/Week Comments Not Asked 0 (1 standard drink = 0.6 oz pur e alcohol) Comments Unknown Sex and Gender Information Value Date Recorded Sex Assigned at Female 07/03/2022 5:40 AM EDT Legal Sex Female 5:46 PM EST Gender Identity Female 07/03/2022 5:40 AM EDT Sexual Orientation Straight 03/04/2024 3: 52 PM EST documented as of this encounter Plan of Treatment Upcoming Encounters Date Type Department Care Team (Late Contact Info) Description 12/16/2024 11:40 AM EDT Office Visit [facility] [address] 3rd Floor, [address] [place] [address] Ayden Wright MD, MS [address] [facility], [address] [place] [address] [email or web address] documented as of this encounter Results * COVID-19 PCR Order (11/01/2019 1:18 PM EDT) Specimen Source 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) [facility] COVID Testing Status Sent to [facility] Other 11/01/2019 1:18 PM EDT 11/01/2019 2:02 PM EDT us Smiley Harmon MD BODY FLUIDS AND STOOLS ORDERA BLES Edited Result - Final [facility] [address] [place] [address] documented in this encounter Visit Diagnoses Diagnosis Exposure to SARS virus- Primary Exposure to SARS-associated coronavirus documented in this encounter Additional Health Concerns Infection Onset Date Last Indicated Resolved Time CoV-Exposed Comment:Recent close contact 10/26/2019 10/26/2019 11/09/2019 1:27 AM EDT documented as of this encounter Care Teams Public Housing Interviewer Relationship Specialty Start Date End Date Smiley Harmon MD [address] [place] [address] PCP - General Internal Medicine 10/04/15 documented as of this encounter Additional Source Comments The information contained in this document represents components of the legal health record. It is not the complete legal health record.[facility]
--- OUTSIDE RECORDS SUMMARY | 2024-12-08 16:27 | XMS_ITS | Clinical Summary ---
Author Organization [facility] Address [address] [place] [address] Phone Care Team Providers Care Car Dumper Operator Name Role Phone Smiley Harmon MD Primary Care Provider Allergies Active Allergy Reactions Criticality Noted Date Comments Iodinated Contrast Media Unknown 05/21/2009 Other reaction(s): becomes faint Macrolide Antibiotics GI Upset 05/21/2009 Pseudoephedrine Other (See Comments) 05/21/2009 anxious Medications letrozole (FEMARA) 2.5 mg tablet Take 2.5 mg by mouth daily. Active cholecalciferol (VITAMIN D3) 1,000 unit tablet Take 1,000 Units by mouth daily. Active lactulose (CONSTULOSE) 10 gram/15 mL (15 mL) Soln Active famotidine (PEPCID) 20 MG tablet Take 1 tablet (20 mg total) by mouth 2 (two) times a day. 60 tablet 11 07/23/2022 Active Active Problems Problem Noted Date Diagnosed Date Inguinal hernia 10/31/2015 Chest pain 05/21/2009 Overview (05/20/2014): Chest pain; occasional Encounters Date Type Department Care Team Description 10/24/2024 9:08 PM EDT - 10/24/2024 10:16 PM EDT [facility] [address] [place] [address] Discharge Disposition: Home or Self Care 10/06/2024 10:24 PM EDT - 10/06/2024 11:09 PM EDT Emergency [facility] [address] [place] [address] Darius Farmer MD Discharge Disposition: Home or Self Care from Last 3 Months Family History Medical History Relation Comments Diabetes type II Father Heart disease Father Prostate cancer Father Squamous cell carcinoma Father Breast cancer Mother Diabetes type II Mother Heart disease Mother Squamous cell carcinoma Mother Relation Status Comments Father Mother Social History Tobacco Use Types Packs/Day Years Used Date Smoking Tobacco: Never Smokeless Tobacco: Never Tobacco Cessation:Counseling Given: Not Answered Alcohol Use Standard Drinks/Week Comments Not Currently 0 (1 standard drink = 0.6 oz pur e alcohol) Education Answer Date Recorded Are you interested in more education? Not on toby e 07/25/2022 Are you concerned about learning? Not on file 07/25/2022 No 07/25/2022 No 07/25/2022 Digital Access Answer Date Recorded No 08/24/2022 No 08/24/2022 Reliable internet access at home? Not on file 08/24/2022 Device with a working camera? Not on file Intimate Partner Violence Answer Date R ecorded Are you denied basic needs s uch as food, clothing, or medical care? No 10/24/2024 In the past 12 months have y ou been in a relationship with a person who hurts, threatens, or tries to control you? No 10/24/2024 Are you denied basic needs s uch as food, clothing, or medical care? No 10/24/2024 In the past 12 months have y ou been in a relationship with a person who hurts, threatens, or tries to control you? No 10/24/2024 Comments Unknown Sex and Gender Information Value Date Recorded Sex Assigned at Female 07/03/2022 5:40 AM EDT Legal Sex Female 5:46 PM EST Gender Identity Female 07/03/2022 5:40 AM EDT Sexual Orientation Straight 03/04/2024 3: 52 PM EST Last Filed Vital Signs Vital Sign [place] Time Taken Comments Blood Pressure 132/66 10/24/2024 9:22 PM EDT Pulse 52 10/24/2024 9:22 PM EDT Temperature 36.6 C (97.9 F) 10/24/2024 7:46 PM EDT Respiratory Rate 13 10/24/2024 9:22 PM EDT Oxygen Saturation 99% 10/24/2024 9:22 PM EDT Inhaled Oxygen Concentration - - Weight 57.6 kg (127 lb) 04/20/2024 5:09 PM EST Height 162.6 cm (5' 4 ) 04/20/2024 5:09 PM EST Body Mass Index 21.8 04/20/2024 5:09 PM EST Plan of Treatment Upcoming Encounters Date Type Department Care Team (Late st Contact Info) Description 12/16/2024 11:40 AM EDT Office Visit [facility] [address] [place] [address] 3rd Floor, [address] [place] [address] Ayden Wright MD, MS [address] [facility], [address] [place] [address] [email or web address] Maintenance Due Date Last Done Comments LIPID PANEL 1952 DEPRESSION SCREENING 1964 HEPATITIS C SCREENING 02/22/1970 MAMMOGRAM 1992 COLOGUARD 02/22/1997 COLONOSCOPY 02/22/1997 COLORECTAL CANCER SCREENING 02/22/1997 FIT TEST 02/22/1997 FOBT 02/22/1997 SIGMOIDOSCOPY 02/22/1997 VIRTUAL COLONOSCOPY 02/22/1997 PNEUMOCOCCAL VACCINES (50+ y ears) (1 of 1 - PCV) 02/22/2002 ZOSTER VACCINES (1 of 2) 02/22/2002 OSTEOPOROSIS SCREENING INITI AL (ONE-TIME) 02/22/2017 COVID-19 VACCINE (2 - 2023-2 5 season) 2023 06/10/2020 Adult Td,Tdap Booster 12/11/2026 12/11/2016 RSV VACCINE (1 - 1-dose 75+ series) 02/22/2027 SMOKING STATUS SCREENING (On ce After 26 Yrs) Completed 03/04/2024 HEPATITIS A VACCINES Aged Out No long er eligible based on patient's age to complete this topic HIB VACCINES Aged Out No longer eligi ble based on patient's age to complete this topic MENINGOCOCCAL VACCINES (ACWY) Aged Out No longer eligible based on patient's age to complete this topic MENINGOCOCCAL VACCINES (B) Aged Out N o longer eligible based on patient's age to complete this topic Medical Devices Not on file Procedures Procedure Name Priority Date/Time Associated Diagnosis Comments TROPONIN STAT 10/24/2024 8:38 PM EDT TROPONIN STAT 10/24/2024 7:17 PM EDT BASIC METABOLIC PANEL STAT 10/24/2024 7:17 PM EDT CBC AND DIFFERENTIAL STAT 10/24/2024 7:17 PM EDT ECG 12-LEAD STAT 10/24/2024 6:20 PM EDT TROPONIN STAT 10/06/2024 9:27 PM EDT TROPONIN STAT 10/06/2024 6:54 PM EDT ECG 12-LEAD STAT 10/06/2024 6:22 PM EDT from Last 3 Months Results * (ABNORMAL) Troponin (10/24/2024 8:38 PM EDT) Only the most recent of4 resultswithin the time period is included. Pathologist [facility] Troponin-T, HS Gen5 17(H) 0 - 9 ng/L [facility] Blood 10/24/2024 8:38 PM EDT 10/24/2024 8:55 PM EDT us Domingo Swartz MD LAB BLOOD ORDERABLES Final Result [address] [address] * (ABNORMAL) CBC and differential (10/24/2024 7:17 PM EDT) Pathologist [facility] WBC 6.27 4.00 - 11.00 K/uL [facility] RBC 4.36 4.00 - 5.20 M/uL [facility] HGB 12.0 12.0 - 16.0 g/dL [facility] HCT 37.6 36.0 - 46.0 % [facility] PLT 142(L) 150 - 450 K/uL [facility] MCV 86.2 80.0 - 100.0 fL [facility] MCH 27.5 27.0 - 31.0 pg [facility] MCHC 31.9(L) 32.0 - 36.0 g/dL [facility] RDW 13.4 11.5 - 14.5 % [facility] MPV 11.7 8.4 - 12.0 fL [facility] NRBC 0.00 0.00 /100 WBCs [facility] ABSOLUTE NRBC 0.00 0.00 K/uL [facility] DIFF METHOD Auto [facility] NEUTS 65.7 48.0 - 76.0 % [facility] LYMPHS 24.6 18.0 - 41.0 % [facility] MONOS 8.1 4.0 - 11.0 % [facility] EOS 0.5 0.0 - 5.0 % [facility] BASOS 0.8 0.0 - 1.5 % [facility] Granulocytes, immature (%) 0.3 0.0 - 0.9 % [facility] ABSOLUTE NEUTS 4.12 1.92 - 7.60 K/uL [facility] ABSOLUTE LYMPHS 1.54 0.72 - 4.10 K/uL [facility] ABSOLUTE MONOS 0.51 0.16 - 1.10 K/uL [facility] ABSOLUTE EOS 0.03 0.00 - 0.50 K/uL [facility] ABSOLUTE BASOS 0.05 0.00 - 0.15 K/uL [facility] Granulocytes, immature 0.02 0.00 - 0.09 K/uL [facility] Blood 10/24/2024 7:17 PM EDT 10/24/2024 7:20 PM EDT us Domingo Swartz MD LAB BLOOD ORDERABLES Final Result [facility] [address] [place] [address] * Basic metabolic panel (10/24/2024 7:17 PM EDT) SODIUM 140 133 - 146 mmol/L [facility] CHLORIDE 103 96 - 108 mmol/L [facility] POTASSIUM 3.8 3.3 - 5.1 mmol/L [facility] CO2 26 21 - 35 mmol/L [facility] BUN 14 6 - 19 mg/dL [facility] CREATININE 0.60 0.5 - 1.5 mg/dL [facility] GLUCOSE 91 70 - 99 mg/dL [facility] CALCIUM 10.0 8.4 - 10.3 mg/dL [facility] EGFR 95 >59 mL/min/1.7 3m2 [facility] Comment:Estimated glomerular filtration rate calculated using the CKD-EPI refit equation. ANION GAP 15 10 - 20 mmol/L [facility] Blood 10/24/2024 7:17 PM EDT 10/24/2024 7:20 PM EDT Domingo Swartz MD LAB BLOOD ORDERABLES Final Result [address] [address] * ECG 12-LEAD (10/24/2024 6:20 PM EDT) Only the most recent of2 resultswithin the time period is included. Ventricular Rate EKG/MIN 60 BPM [facility] Atrial Rate 60 BPM [facility] AR Interval 176 ms [facility] QRS Duration 88 ms [facility] QT Interval 394 ms [facility] QTC Interval 394 ms [facility] P [place] 71 degrees [facility] R Wave [place] -6 degrees [facility] T Wave [place] 9 degrees [facility] 10/24/2024 6:20 PM EDT 10/25/2024 10:56 AM EDT Narrative [facility] - 10/25/2024 10:56 AM EDT Sinus rhythm with Premature atrial complexes Possible Left atrial enlargement Septal infarct (cited on or before 22-Feb-2024) Abnormal ECG When compared with ECG of 06-Oct-2024 18:22, Questionable change in initial forces of Septal leads Confirmed by Boni ODOM ([id number]) on 10/25/2024 10:56:08 AM us Domingo Swartz MD ECG ORDERABLES Final Resul t [facility] from Last 3 Months Insurance MEDICARE PART A & B [employer] MED[employer] SUPPLEMENT MEDICARE PART A & B [employer] MED[employer] SUPPLEMENT [place] MED[employer] SUPPLEMENT [place] MEDEX SUPPLEMENT MEDICARE PART A & B [place] MEDEX SUPPLEMENT MEDICARE PART A & B [place] MEDEX SUPPLEMENT MEDICARE PART A & B [employer] MEDEX SUPPLEMENT [place]OSS MEDEX SUPPLEMENT MEDICARE PART A & B Care Teams Car Dumper Operator Relationship Specialty Start Date End Date Smiley Harmon MD [address] [place] [address] PCP - General Internal Medicine 10/04/15 Additional Source Comments The information contained in this document represents components of the legal health record. It is not the complete legal health record.[facility]
--- OUTSIDE RECORDS SUMMARY | 2024-12-08 16:27 | XMS_ITS | Patient Health Record ---
Author Organization [facility] Address [address] [place] [address] Care Team Providers Care Gauntlet Pairer Name Role Phone Smiley Harmon MD Primary Care Provider Unavaila geoff Amaya, Lani Unavailable [phone] Allergies Allergen (clinical drug ingredient) Drug/Non Drug [...] Status Risk Notes Problem Acquired hallux valgus (31802066) Hallux valgus (acquired), left foot (M20.12) Active confirmed Problem Localized, primary osteoarthritis of the ankle and/or foot (773159694) Primary osteoarthritis, left ankle and foot (M19.072) Active confirmed Problem Acquired hallux valgus (42288401) Acquired hallux interphalangeus of left foot (M20.12) Active confirmed Plan Of Treatment No Information Insurance Providers Payer Name Payer Address Payer Phone Subscriber Number Group Number Insured Name Patient Relationship to Insured Coverage Start Date Coverage End Date [facility] [address] [place] [address] [id number] Rosie Linda Self - patient is [...]
--- OUTSIDE RECORDS SUMMARY | 2024-12-08 16:27 | XMS_ITS | Clinical Summary ---
Author Organization [facility] Address [address] [place] [address] Phone Care Team Providers Care Chief Wellness Officer Name Role Phone Smiley Harmon MD Primary Care Provider [phone] Social History Tobacco Use Types Packs/Day Years Used Date Smoking Tobacco: Never Assessed Comments Unknown Sex and Gender Information Value Date Recorded Sex Assigned at Not on file Legal Sex Female 3:25 AM EST Gender Identity Not on file Sexual Orientation Not on file Plan of Treatment Health Maintenance Due Date Last Done Comments Breast Cancer Screening 1950 COVID-19 Vaccine (#1) 02/22/1957 DTaP,Tdap,and Td Vaccines (1 - Tdap) 02/22/1971 Pneumococcal Vaccine: 50+ Ye ars (1 of 1 - PCV) 02/22/2002 Zoster Vaccines (1 of 2) 02/22/2002 Depression Screening 03/30/2024 Colorectal Cancer Screening: Colonoscopy 05/25/2024 Falls Risk Assessment 05/25/2024 Hepatitis C Screening 05/25/2024 Medicare Annual Wellness Visit 05/25/2024 Osteoporosis Screening (Bone Density Screening) 05/25/2024 Social Influencers of Health Screening 05/25/2024 Influenza Vaccine (#1) 2024 RSV Immunization Adult Patie nts (1 - 1-dose 75+ series) 02/22/2027 HIB Vaccines Aged Out No longer eligi ble based on patient's age to complete this topic HPV Vaccines Aged Out No longer eligi ble based on patient's age to complete this topic Hepatitis A Vaccines Aged Out No long er eligible based on patient's age to complete this topic Hepatitis B Vaccines Aged Out No long er eligible based on patient's age to complete this topic IPV Vaccines Aged Out No longer eligi ble based on patient's age to complete this topic MMR Vaccines Aged Out No longer eligi ble based on patient's age to complete this topic Meningococcal ACWY Vaccine Aged Out N o longer eligible based on patient's age to complete this topic Meningococcal B Vaccine Aged Out No l onger eligible based on patient's age to complete this topic RSV Immunization Patients Un enrrique 20 months Aged Out No longer eligible b ased on patient's age to complete this topic Varicella Vaccines Aged Out No longer eligible based on patient's age to complete this topic Insurance MEDICARE [facility] Care Teams Chief Wellness Officer Relationship Specialty Start Date End Date Smiley Harmon MD PCP - General Internal Medicine 07/09/12
== END 2024-12-08 16:51 | disposition home or self-care (01) ==
LOC: HO.HMCC 12:13
PROVIDERS: PCP Internal Medicine; Visit Provider Internal Medicine
DX: H26.9 Unspecified cataract (principal)

== ENCOUNTER → 2024-12-08 12:13 | Outpatient (BNVA) | payer MEDICARE, SELFPAY | PROVIDERS: PCP Internal Medicine; Visit Provider Internal Medicine | DX: K21.9 Gastro-esophageal reflux disease without esophagitis (principal); H26.9 Unspecified cataract | CPT/HCPCS: 99212 ==